=== PATIENT | female | born 1945 | race Caucasian/White ===

== ENCOUNTER 2016-11-26 08:00 | Outpatient (CLI) | payer MEDICARE | END 2016-11-26 23:59 | disposition home or self-care (01) | DX: R73.09 Other abnormal glucose (principal) ==

== ENCOUNTER 2016-11-26 08:35 | Outpatient (CLI) | payer MEDICARE | END 2016-11-26 08:36 | disposition home or self-care (01) | DX: Z00.00 Encounter for general adult medical examination without abnormal findings (principal); R41.81 Age-related cognitive decline; E03.9 Hypothyroidism, unspecified; Z79.899 Other long term (current) drug therapy; M81.0 Age-related osteoporosis without current pathological fracture ==

== ENCOUNTER 2016-12-05 13:44 | Outpatient (CLI) | payer MEDICARE | END 2016-12-05 13:45 | disposition home or self-care (01) | DX: Z12.31 Encounter for screening mammogram for malignant neoplasm of breast (principal) ==

== ENCOUNTER 2017-02-22 07:27 | Outpatient (CLI) | payer MEDICARE | END 2017-02-22 07:28 | disposition home or self-care (01) | DX: E11.65 Type 2 diabetes mellitus with hyperglycemia (principal); Z79.899 Other long term (current) drug therapy ==

== ENCOUNTER 2017-03-25 08:57 | Day surgery (SDC) | payer MEDICARE ==
[2017-03-25] MEDS ORDERED: LACTATED RINGERS 1,000 ML IV ONE (09:47)
[2017-03-25] MEDS ORDERED: fentaNYL 100 MCG/2 ML VIAL IVP ONE (11:09)
[2017-03-25] MEDS ORDERED: MIDAZOLAM 2 MG/2 ML VIAL IVP ONE (11:09)
[2017-03-25 12:14] VITALS: BP 138/82
== END 2017-03-25 08:58 | disposition home or self-care (01) ==
LOC: SDS 08:57
PROVIDERS: ATTEND Surgery
PROC: 0DBH8ZZ Excision of Cecum, Via Natural or Artificial Opening Endoscopic (ICD-10-PCS; principal; 2017-03-25 10:00)
DX: R19.5 Other fecal abnormalities (principal); D12.0 Benign neoplasm of cecum; Z98.0 Intestinal bypass and anastomosis status; K64.8 Other hemorrhoids; K64.4 Residual hemorrhoidal skin tags; Z80.0 Family history of malignant neoplasm of digestive organs; Z95.5 Presence of coronary angioplasty implant and graft; Z87.891 Personal history of nicotine dependence
CPT/HCPCS: 45380; J7120; 88305

== ENCOUNTER 2017-06-20 08:05 | Outpatient (CLI) | payer MEDICARE ==
[2017-06-20 18:20] LABS: HEMOGLOBIN A1C 0.75 g/dL
== END 2017-06-20 08:06 | disposition home or self-care (01) ==
LOC: LAB.R 08:05
PROVIDERS: ATTEND Physician Assistant Medical
DX: E11.9 Type 2 diabetes mellitus without complications (principal); Z79.899 Other long term (current) drug therapy
CPT/HCPCS: 82947; 83036

== ENCOUNTER 2017-07-26 09:05 | Outpatient (CLI) | payer MEDICARE | END 2017-07-26 09:06 | disposition home or self-care (01) | LOC: NS 09:05 | PROVIDERS: ATTEND Physician Assistant Medical | DX: Z71.3 Dietary counseling and surveillance (principal); E11.9 Type 2 diabetes mellitus without complications; Z79.84 Long term (current) use of oral hypoglycemic drugs; Z68.1 Body mass index [BMI] 19.9 or less, adult | CPT/HCPCS: 97803 ==

== ENCOUNTER 2017-08-12 08:56 | Outpatient (CLI) | payer MEDICARE | END 2017-08-12 08:57 | disposition home or self-care (01) | LOC: NS 08:56 | PROVIDERS: ATTEND Physician Assistant Medical | DX: Z71.3 Dietary counseling and surveillance (principal); E11.9 Type 2 diabetes mellitus without complications; Z79.84 Long term (current) use of oral hypoglycemic drugs; Z68.20 Body mass index [BMI] 20.0-20.9, adult | CPT/HCPCS: 97803 ==

== ENCOUNTER 2017-09-23 08:59 | Outpatient (CLI) | payer MEDICARE | END 2017-09-23 09:00 | disposition home or self-care (01) | LOC: NS 08:59 | PROVIDERS: ATTEND Physician Assistant Medical | DX: Z71.3 Dietary counseling and surveillance (principal); E11.9 Type 2 diabetes mellitus without complications; Z68.1 Body mass index [BMI] 19.9 or less, adult | CPT/HCPCS: 97803 ==

== ENCOUNTER 2017-09-27 08:20 | Outpatient (CLI) | payer MEDICARE ==
[2017-09-27 14:10] LABS: HEMOGLOBIN A1C 0.66 g/dL
== END 2017-09-27 08:21 | disposition home or self-care (01) ==
LOC: LAB.R 08:20
PROVIDERS: ATTEND Physician Assistant Medical
DX: E11.9 Type 2 diabetes mellitus without complications (principal); Z79.899 Other long term (current) drug therapy
CPT/HCPCS: 82947; 83036

== ENCOUNTER 2017-12-24 09:48 | Outpatient (CLI) | payer MEDICARE ==
[2017-12-24 10:26] LABS: BASOPHILS # (AUTO) 0.1 10^3/uL (0.0-0.1); BASOPHILS % (AUTO) 1.1 %; EOSINOPHILS # (AUTO) 0.2 10^3/uL (0.0-0.7); EOSINOPHILS % (AUTO) 3.8 %; HGB - HEMOGLOBIN 13.6 g/dL (12.0-16.0); LYMPHOCYTES # (AUTO) 1.3 10^3/uL (1.5-3.5); LYMPHOCYTES % (AUTO) 25.7 %; MEAN CORPUSCULAR HEMOGLOBIN 31.1 pg (27.0-31.0); MEAN CORPUSCULAR HGB CONC 33.9 g/dL (32.0-36.0); MEAN CORPUSCULAR VOLUME 91.6 fL (81.0-99.0); MONOCYTES # (AUTO) 0.4 10^3/uL (0.0-1.0); MONOCYTES % (AUTO) 8.8 %; NEUTROPHILS % (AUTO) 60.6 %; PLT - PLATELET COUNT 239 10^3/uL (130-450); RED BLOOD COUNT 4.38 10^6/uL (4.20-5.40)
[2017-12-24 10:40] LABS: HEMOGLOBIN A1C 0.73 g/dL; HEMOGLOBIN A1C % 6.6 % (4.6-6.2)
[2017-12-24 10:50] LABS: ALBUMIN 4.5 g/dL (3.2-5.5); ALBUMIN/GLOBULIN RATIO 1.4 (1.0-2.2); ALKALINE PHOSPHATASE 62 IU/L (42-121); ALT ALANINE AMINOTRANSFERASE 41 IU/L (10-60); AST ASPARTATE AMINOTRANSFERASE 41 IU/L (10-42); BUN - BLOOD UREA NITROGEN 13 mg/dL (6-20); CALCIUM 9.4 mg/dL (8.5-10.3); CARBON DIOXIDE - CO2 26 mmol/L (21-32); CHLORIDE 93 mmol/L (101-111); CHOLESTEROL 141 mg/dL; CREATININE 0.7 mg/dL (0.4-1.0); GFR - MDRD 82 (>89); GLUCOSE 143 mg/dL (70-100); HDL CHOLESTEROL 69 mg/dL; LDL CHOLESTEROL,CALCULATED 62 mg/dL; LDL/HDL RATIO 0.9 (<4.4); SODIUM 132 mmol/L (135-145); TOTAL PROTEIN 7.7 g/dL (6.7-8.2); VLDL CHOLESTEROL 10 mg/dL
[2017-12-24 11:06] LABS: CRP HIGH SENSITIVITY < 0.2 mg/L
[2017-12-24 11:27] LABS: THYROID STIMULATING HORMONE 0.42 uIU/mL (0.34-5.60)
[2017-12-24 11:28] LABS: FREE T4 (FREE THYROXINE) 1.43 ng/dL (0.58-1.64)
[2017-12-26 11:22] LABS: THYROID PEROXIDASE ANTIBODIES 15 IU/mL (<9)
== END 2017-12-24 09:49 | disposition home or self-care (01) ==
LOC: LAB 09:48
PROVIDERS: ATTEND Physician Assistant Medical
DX: M81.0 Age-related osteoporosis without current pathological fracture (principal); E11.9 Type 2 diabetes mellitus without complications; I25.10 Atherosclerotic heart disease of native coronary artery without angina pectoris; E03.9 Hypothyroidism, unspecified; Z79.899 Other long term (current) drug therapy
CPT/HCPCS: 36415; 80053; 80061; 81599; 82306; 82607; 83036; 83090; 83695; 83721; 84439; 84443; 84481; 85025; 86141; 86376; 86800

== ENCOUNTER 2017-12-31 16:06 | Outpatient (CLI) | payer MEDICARE ==
--- NOTE | 2018-01-01 10:01 | XRAY Report ---
TWO VIEW CHEST: 12/31/2017 CLINICAL INDICATION: Hyponatremia. COMPARISON: 11/02/2006. FINDINGS: Frontal and lateral views of the chest demonstrate a normal cardiac silhouette. The lungs are hyperinflated, compatible with COPD. No suspicious pulmonary nodule or mass lesion is appreciated. No effusion or pneumothorax is present. IMPRESSION: HYPERINFLATION, COMPATIBLE WITH COPD. TD: 01/01/2018 10:00
== END 2017-12-31 16:07 | disposition home or self-care (01) ==
LOC: DI 16:06
PROVIDERS: ATTEND Physician Assistant Medical
DX: E87.1 Hypo-osmolality and hyponatremia (principal)
CPT/HCPCS: 71046

== ENCOUNTER 2018-02-14 18:53 | Emergency (ER) | payer MEDICARE ==
[2018-02-14 19:02] VITALS: BP 145/71
[2018-02-14] MEDS ORDERED: TETANUS/DIPHTHERIA/PERTUSSIS 0.5 ML SYRINGE IM ONE (20:10)
[2018-02-14] MEDS ORDERED: AMOX/CLAV 875 MG/125 MG TABLET PO STA (20:10)
--- NOTE | 2018-02-14 20:12 | ED Physician Documentation ---
PD HPI UPPER EXT INJURY - Stated complaint Stated Complaint: CAT BITE - Chief complaint Chief Complaint: Wound - History obtained from History obtained from: Patient - History of Present Illness Location: Other (She was bitten to the left forearm by her own fully immunized cat his prior to arrival. 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 Cardiovascular: Coronary stent, Angioplasty HEENT: Cataracts - Present Medications Home Medications: Ambulatory Orders Medication Instructions Recorded Confirmed Aspirin [Carmen Chewable] 81 mg PO DAILY 05/02/16 02/14/18 Atorvastatin Calcium 20 mg PO QPM 05/02/16 02/14/18 Levothyroxine [Synthroid] 0.125 mcg PO QDAC 05/02/16 02/14/18 Nitroglycerin [Nitrostat] 0.3 mg SL Q5MIN PRN 05/02/16 02/14/18 Trazodone HCl 100 mg PO DAILY 05/02/16 02/14/18 Calcium Carbonate [Calcium] 600 mg PO DAILY 12/07/16 02/14/18 Cholecalciferol (Vitamin D3) 4,000 unit PO DAILY 12/07/16 02/14/18 [Vitamin D3] Multivitamin [Multiple Vitamins] 1 each PO DAILY 12/07/16 02/14/18 metFORMIN [Glucophage] 500 mg PO BIDWM 03/21/17 02/14/18 Amox/Clav 875/125 [Augmentin] 1 each PO Q12H #14 tablet 02/14/18 - Allergies Allergies/Adverse Reactions: Allergies Allergy/AdvReac Type Severity Reaction Status Date / Time codeine AdvReac Nausea Verified 02/14/18 19:02 Sulfa (Sulfonamide AdvReac Anaphylaxis Verified 02/14/18 19:02 Antibiotics) - Social History Does the pt smoke?: No Smoking Status: Former smoker Does the pt drink ETOH?: No Does the pt have substance abuse?: No - POLST Patient has POLST: No PD ED PE NORMAL - Vitals Vital signs reviewed: Yes - General General: Alert and oriented X 3, No acute distress - Extremities Extremities: Other (She has a small area of tissue loss that is quite shallow over the dorsal mid forearm without evidence of infection.) - Neuro Neuro: Alert and oriented X 3, Normal speech Results - Vitals Vitals: Vital Signs - 24 hr 02/14/18 18:57 Temperature 36.8 C Heart Rate 91 Respiratory 14 Rate Blood Pressure 145/71 H O2 Saturation 99 Oxygen O2 Source Room air PD MEDICAL DECISION MAKING - ED course ED course: Wound was irrigated and closed with Steri-Strips, tetanus was updated and she was started on Augmentin. Departure - Departure Disposition: 01 Home, Self Care Clinical Impression: Animal bite with open wound Condition: Good Record reviewed to determine appropriate education?: Yes Instructions: Bites Scratches Animal Prescriptions: Amox/Clav 875/125 [Augmentin] 1 each PO Q12H #14 tablet Comments: Come back for any signs of infection which would include: Redness, swelling, drainage, increased pain, or fevers. Your blood pressure was elevated today on check into the emergency department. This does not mean that you have hypertension, it is a common phenomenon to come to the emergency department and have elevated blood pressure. I recommend that you see your primary care physician within the week to have it rechecked when you are feeling better.
== END 2018-02-14 20:58 | disposition home or self-care (01) ==
LOC: ED 18:53
DX: S51.852A Open bite of left forearm, initial encounter (principal); W55.01XA Bitten by cat, initial encounter; R03.0 Elevated blood-pressure reading, without diagnosis of hypertension; Z23 Encounter for immunization; E11.9 Type 2 diabetes mellitus without complications; I25.10 Atherosclerotic heart disease of native coronary artery without angina pectoris; E03.9 Hypothyroidism, unspecified; Z79.84 Long term (current) use of oral hypoglycemic drugs; Z79.82 Long term (current) use of aspirin; Z95.5 Presence of coronary angioplasty implant and graft; Z87.891 Personal history of nicotine dependence
CPT/HCPCS: 90471; 90715; 99283; A9270

== ENCOUNTER 2018-02-27 14:23 | Outpatient (CLI) | payer MEDICARE ==
--- NOTE | 2018-02-28 11:01 | DEXA Report ---
DEXA SCAN: 02/27/2018 CLINICAL INDICATION: Postmenopausal. TECHNIQUE: Dual energy x-ray absorptiometry (DXA) was performed on a [employer]unk[employer] Mode system. Regions measured are the AP spine, femoral neck, and, if needed, forearm. COMPARISON: None. In accordance with the International Society for Clinical Densitometry (ISCD) guidelines, data from previous exams may be reanalyzed using current recommendations and techniques. This is done to allow a more accurate basis for comparison with the current study. FINDINGS Data for the lumbar spine is as follows: REGION BMD (g/cm/cm) T-SCORE Z-SCORE L1 0.707 -3.5 -1.3 L2 0.894 -2.5 -0.4 L3 0.893 -2.6 -0.4 L4 1.004 -1.6 0.6 L1-L4 0.883 -2.5 -0.3 NOTE: All evaluable vertebrae are used for classification. Data for the hip is as follows: REGION BMD (g/cm/cm) T-SCORE Z-SCORE Neck 0.781 -1.8 0.3 TOTAL 0.772 -1.9 0.2 NOTE: The femoral neck or total proximal femur, whichever is lowest, is used for classification. IMPRESSION WHO CLASSIFICATION BASED ON THE INTERNATIONAL REFERENCE STANDARD IS OSTEOPOROSIS. FRACTURE RISK IS HIGH. RECOMMENDATION: Patients with diagnosis of osteoporosis or osteopenia should have regular bone mineral density assessment. For those eligible for Medicare, routine testing is allowed once every 2 years. Testing frequency can be increased for patients who have rapidly progressing disease or for those who are receiving medical therapy to restore bone mass. COMMENT World Health Organization (WHO) definitions for osteoporosis and osteopenia: NORMAL BMD: T-score at 1.0 or higher, fracture risk is low. OSTEOPENIA BMD: T-score between 1.0 and -2.5, fracture risk is increased. OSTEOPOROSIS BMD: T-score at 2.5 or lower, fracture risk high. National Osteoporosis Foundation recommends: 1. Obtain adequate dietary calcium (at least 1200 mg per day) and vitamin D (400 -800 international units per day). 2. Participate, as appropriate, in regular weightbearing and muscle- strengthening exercise. 3. Avoid tobacco use and reduce alcohol and caffeine intake. 4. For more detailed information see the website at www.NOF.org. TD: 02/27/2018 16:13 MTDTom
== END 2018-02-27 14:24 | disposition home or self-care (01) ==
LOC: DI 14:23
PROVIDERS: ATTEND Internal Medicine
DX: Z78.0 Asymptomatic menopausal state (principal); M81.0 Age-related osteoporosis without current pathological fracture
CPT/HCPCS: 77080

== ENCOUNTER → 2018-09-10 | Outpatient (CLI) | payer MEDICARE ==
[2018-09-10 15:09] LABS: HEMOGLOBIN A1C 0.68 g/dL; HEMOGLOBIN A1C % 6.6 % (4.6-6.2)
== END ==
LOC: LAB.R 09:02
PROVIDERS: ATTEND Physician Assistant Medical
DX: Z79.899 Other long term (current) drug therapy (principal); E11.9 Type 2 diabetes mellitus without complications
CPT/HCPCS: 82947; 83036

== ENCOUNTER 2019-06-12 06:26 | Emergency (ER) | payer MEDICARE ==
[2019-06-12] MEDS ORDERED: oxyCODONE 5 MG TABLET PO STA ×2 (08:05→12:23)
[2019-06-12] MEDS ORDERED: ACETAMINOPHEN 325 MG TABLET PO STA (08:05)
--- NOTE | 2019-06-12 08:33 | ED Physician Documentation ---
History of Present Illness - Stated complaint Stated Complaint: GLF/BACK PX - Chief complaint Chief Complaint: Trauma Ch/Bk - Additonal information Additional information: This is a 73-year-old female who presents after a ground-level fall on Saturday evening. Patient was trying to get out of her bathtub on Saturday and she states that the tub was slippery and she fell backwards landing on her lower back. She had immediate pain in the area, and she has been treating this with some ibuprofen. However she has had persistent pain which is moderate to severe and worse with standing or with pressure on the area. She denies weakness, n umbness, tingling. No history of previous back injuries or fractures. She denies any urinary or bowel complaints, no incontinence. She denies chest pain, shortness of breath, or confusion. No dysuria. She did not hit her head or neck, denies loss of consciousness. She is not on anticoagulants. Review of Systems Constitutional: denies: Fever Nose: denies: Rhinorrhea / runny nose Cardiac: denies: Chest pain / pressure Respiratory: denies: Dyspnea GI: denies: Abdominal Pain : denies: Dysuria Skin: denies: Rash Musculoskeletal: reports: Back pain. 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 Cardiovascular: Coronary stent, Angioplasty HEENT: Cataracts - Present Medications Home Medications: Ambulatory Orders Medication Instructions Recorded Confirmed Aspirin [Carmen Chewable] 81 mg PO DAILY 05/02/16 06/12/19 Levothyroxine [Synthroid] 0.125 mcg PO QDAC 05/02/16 06/12/19 Nitroglycerin [Nitrostat] 0.3 mg SL Q5MIN PRN 05/02/16 06/12/19 RX: Atorvastatin Calcium 20 mg PO QPM 05/02/16 06/12/19 RX: Trazodone HCl 100 mg PO DAILY 05/02/16 06/12/19 Calcium Carbonate [Calcium] 600 mg PO DAILY 12/07/16 06/12/19 Cholecalciferol (Vitamin D3) 4,000 unit PO DAILY 12/07/16 06/12/19 [Vitamin D3] Multivitamin [Multiple Vitamins] 1 each PO DAILY 12/07/16 06/12/19 metFORMIN [Glucophage] 500 mg PO BIDWM 03/21/17 06/12/19 Oxycodone HCl/Acetaminophen 1 - 2 each PO Q6H PRN #14 tablet 06/12/19 [Percocet 5-325 mg Tablet] Polyethylene Glycol 3350 [Miralax] 17 gm PO DAILY PRN #1 bottle 06/12/19 - Allergies Allergies/Adverse Reactions: Allergies Allergy/AdvReac Type Severity Reaction Status Date / Time codeine AdvReac Nausea Verified 06/12/19 06:48 Sulfa (Sulfonamide AdvReac Anaphylaxis Verified 06/12/19 06:48 Antibiotics) - Social History Does the pt smoke?: No Smoking Status: Never smoker Does the pt drink ETOH?: No Does the pt have substance abuse?: No - Immunizations Immunizations are current?: Yes - POLST Patient has POLST: No PD ED PE NORMAL - Free text exam Free text exam: GENERAL: Awake, alert EYES: Normal sclera HENT/Mouth: Mucus membranes are moist RESP: Lungs sound clear and equal bilaterally CV: Regular rate and rhythm; no lower extremity edema GI: Abdomen is soft, non-distended, No tenderness to palpation of all quadrants Back: Moderate kyphosis. There is tenderness over the upper L-spine in the region of T12-L1 and L2. No open wounds, appears to be some mild ecchymosis in this region. No C-spine tenderness, no upper or mid T-spine tenderness to palpation. : No CVA tenderness NEURO: Awake, alert, oriented to person, place, event. Speech fluent and articulate. Motor: 5/5 strength with hip flexion, ankle dorsiflexion and plantarflexion. Sensation: Intact to light touch over all extremities Gait: Able to stand and ambulate independently. Results - Vitals Vitals: Vital Signs - 24 hr 06/12/19 06/12/19 06/12/19 08:50 08:57 11:19 Heart Rate 70 86 86 Respiratory 16 16 19 Rate Blood Pressure 188/78 H 153/74 H 146/85 H O2 Saturation 97 98 99 06/12/19 12:58 Heart Rate 90 Respiratory 18 Rate Blood Pressure 148/81 H O2 Saturation 96 Oxygen O2 Source Room air - Labs Labs: Laboratory Tests 06/12/19 06/12/19 06:40 08:45 POC Whole Bld Glucose 159 H Urine Color YELLOW Urine Clarity CLEAR Urine pH 6.5 Ur Specific [place] 1.020 Urine Protein TRACE Urine Glucose (UA) NEGATIVE Urine Ketones 40 H Urine Occult Blood NEGATIVE Urine Nitrite NEGATIVE Urine Bilirubin NEGATIVE Urine Urobilinogen 0.2 (NORMAL) Ur Leukocyte Esterase NEGATIVE Ur Microscopic Review NOT INDICATED - Rads (name of study) CT L Spine Radiology: Other (CT scan reviewed now was notified of resolved by the radiologist, patient has a 2 column fracture of the upper T12 vertebral body with 30% vertebral height loss and a mild degree of posterior fracture fragment displacement into the central canal with mild canal stenosis.) PD MEDICAL DECISION MAKING - ED course Complexity details: considered differential (Fracture, dislocation, strain, sprain, contusion, hematoma, UTI) ED course: On initial examination patient is mildly her head and neck are atraumatic, as are her extremities. She has localized tenderness to the lower midline L-spine, given her age And midline tenderness a CT of the L-spine was obtained, this showed the above-mentioned T12 2 column fracture. I called the [facility] spine service and spoke with Dr. Rivera Of neurosurgery, who reviewed her CT scan. He recommended TLSO bracing, and follow-up with their service in 1 to 2 weeks as an outpatient. He does not feel that she is a good surgical candidate due to osteopenia, and the fact that she is ambulatory is also reassuring. She is a normal neurologic exam with no sensory or motor deficits. TLSO brace was applied, And upright x-rays were obtained Which showed no further acute findings other than those detailed in the CT scan. I talked with the [facility] scheduling service and they will call her to set up an appointment in the next 1 to 2 weeks, I also provided the patient with the got information for [facility]. I discussed that she is to wear her TLSO brace anytime she is out of bed, and that she should avoid twisting, flexion, or extension of her back until she is cleared by the neurosurgery service. I discussed return precautions including any neurologic symptoms, or increasing pain. Regarding her fall, this does appear to be mechanical, she had no chest pain, shortness of breath, syncope, or urinary symptoms to suggest a primary medical cause. Her urinalysis is negative for infection. I prescribed her Tylenol as well as some oxycodone for breakthrough pain, And discussed the risks of this medication. I also prescribed a stool softener for use with the oxycodone. Patient's questions were answered, and she was discharged home in the care of her daughter Departure - Departure Disposition: 01 Home, Self Care Clinical Impression: Fracture of thoracic spine Qualifiers: Encounter type: initial encounter Thoracic vertebra fracture level: T12 Fracture type: closed Fracture morphology: unspecified fracture morphology Qualified Code(s): S22.089A - Unspecified fracture of T11-T12 vertebra, initial encounter for closed fracture Condition: Stable Instructions: ED Fx Comp Vertebral Follow-Up: [facility],Spine Service [Other] ([facility]'s office will call you to schedule an appt in 1-2 business days) Prescriptions: Oxycodone HCl/Acetaminophen [Percocet 5-325 mg Tablet] 1 - 2 each PO Q6H PRN #14 tablet PRN Reason: pain Polyethylene Glycol 3350 [Miralax] 17 gm PO DAILY PRN #1 bottle PRN Reason: Constipation Comments: You have a fracture of your T12 vertebra, Wear your brace anytime you are out of bed. Please follow-up with the [facility] orthospine service as directed in 1-2 weeks. Return to emergency department if you have any increasing pain, numbness, weakness, or any other concerning symptoms. Discharge Date/Time: 06/12/19 17:12
[2019-06-12 08:55] LABS: BILIRUBIN,URINE NEGATIVE (NEGATIVE); GLUCOSE, URINE (UA) NEGATIVE (NEGATIVE); KETONES,URINE (UA) 40 mg/dL (NEGATIVE); LEUKOCYTE ESTERASE, URINE NEGATIVE (NEGATIVE); NITRITE,URINE NEGATIVE (NEGATIVE); OCCULT BLOOD,URINE NEGATIVE (NEGATIVE); PH,URINE 6.5 PH (5.0-7.5); PROTEIN,URINE TRACE mg/dL (NEGATIVE); UROBILINOGEN,URINE 0.2 (NORMAL) E.U./dL (NORMAL)
[2019-06-12 09:01] LABS: CLARITY,URINE CLEAR (CLEAR)
--- NOTE | 2019-06-12 09:19 | CT Report ---
Reason: Fall, midline lumbar back pain Procedure Date: 06/12/2019 Accession Number: [id number] / [id number] Procedure: CT - LUMBAR SPINE WO CPT Code: FULL RESULT: EXAM: CT LUMBAR SPINE WITHOUT CONTRAST EXAM DATE: 06/12/2019 08:39 AM. CLINICAL HISTORY: Midline lumbar spine pain post injury after a fall. COMPARISONS: XR LUMBOSACRAL SPINE 4 VIEWS 08/05/2012 1:10 PM. TECHNIQUE: Thin-section axial images were acquired of the lumbar spine from T12 to S1 without contrast. Post-processing: Coronal and sagittal reformats. Other: None. In accordance with CT protocol optimization, one or more of the following dose reduction techniques were utilized for this exam: automated exposure control, adjustment of mA and/or KV based on patient size, or use of iterative reconstructive technique. FINDINGS: Alignment: Abnormal alignment. 25 degrees of upper lumbar levoscoliosis. Bones: Five [id number] lumbar vertebral bodies are present. Comminuted mildly displaced acute-appearing fractures of the superior T12 vertebral body including involvement of the superior endplate and the anterior and posterior rivas. This has the appearance of an acute 2 column upper T12 vertebral body fracture with at least 3 mm of fracture fragment displacement posteriorly into the central canal contributing to a mild degree of canal stenosis. The overall degree of the T12 vertebral body height loss is approximately 30%. No evidence for displaced fracture of the T12 posterior elements. This fracture deformity was not present on previous conventional radiographs. Reparative changes associated with the fractures are not identified, the appearance is consistent with an acute injury. Chronic L1 vertebral body healed anterior wedge compression fracture deformity with secondary degenerative changes. Chronic-appearing minimally displaced ununited fracture of the left L2 transverse process. Probable diffuse skeletal demineralization. Streak artifact from horizontally-oriented orthopedic fusion screw through the right SI joint. This screw was not present on the previous conventional radiographs. Disk Levels/Facets: T12-L1: Mild to moderate chronic degenerative changes. Mild central stenosis. Mild right and moderate left foraminal stenosis from chronic-appearing marginal spurring. L1-L2: Moderate disk degeneration. Mild facet arthropathy. Prominent asymmetric far right lateral degenerative chronic disk osteophyte complex. Patient central canal and left foramen. Mild right foraminal stenosis. L2-L3: Moderate to marked disk degeneration. Mild to moderate facet arthropathy. Patent central canal and left foramen. Mild foraminal stenosis on the right. Asymmetric far right lateral disk osteophyte complex. L3-L4: Moderate to marked disk degeneration. Mild to moderate facet arthropathy with mild ligamentum flavum thickening. Circumferential disk bulge. Additional bilateral intraforaminal and far lateral disk protrusions with osteophytes right greater than left. Mild to moderate central stenosis. Moderate bilateral lateral recess stenosis. Foraminal stenosis is mild to moderate on the left and moderate to severe on the right. L4-L5: Moderate to marked disk degeneration and facet arthropathy with a mild ligament flavum thickening. Mild central stenosis. Minimal right and mild to moderate left lateral recess stenosis. Circumferential bulge, marginal spurring and additional asymmetric left intraforaminal and far left lateral disk protrusion with asymmetric osteophyte. Foraminal stenosis is moderate to severe on the left and minimal on the right. L5-S1: Moderate disk degeneration and facet arthropathy. Circumferential bulge. Patent central canal and lateral recesses. Foraminal stenosis is mild on the right and moderate on the left. Musculature: Mild fatty artery. Other: Innumerable chronic-appearing punctate splenic calcifications. IMPRESSION: 1. Acute-appearing 2 column fracture (2 column fractures of the lumbar spine can be unstable) of the upper T12 vertebral body with approximately 30% vertebral body height loss, fracture involvement of the anterior and posterior body rivas and a mild degree of posterior fracture fragment displacement into the central canal creating mild canal stenosis. 2. Chronic healed L1 vertebral body anterior wedge compression fracture. 3. Prominent multilevel multizone lumbar spinal stenosis from moderate to marked multilevel hypertrophic degenerative spondylosis with spurring and disk protrusions as detailed level by level above. RADIA The call report notification system was initiated by Dr. Axel Booker at 08:57 AM on 06/12/2019. The above call report findings were discussed with Thuan Segovia by Dr. Axel Booker at 09:16 AM on 06/12/2019.
[2019-06-12] MEDS ORDERED: ONDANSETRON ODT 4 MG TABLET TL STA (09:23)
[2019-06-12 12:59] VITALS: BP 148/81
--- NOTE | 2019-06-12 15:12 | XRAY Report ---
Reason: Post-TLSO brace film Procedure Date: 06/12/2019 Accession Number: [id number] / [id number] Procedure: XR - Lumbar Spine 2 View CPT Code: FULL RESULT: EXAM: LUMBOSACRAL SPINE RADIOGRAPHY EXAM DATE: 06/12/2019 02:58 PM. CLINICAL HISTORY: Post-TLSO brace film. Known fracture. COMPARISONS: XR LUMBOSACRAL SPINE 4 VIEWS 08/05/2012 1:10 PM LUMBAR SPINE W/O 06/12/2019 8:31 AM. TECHNIQUE: 2 views. FINDINGS: Alignment: There is grade 1 spondylolisthesis at L5-S1. Alignment at other levels appears satisfactory. There is apex left curvature of the lumbar spine with 26 degrees of apex left curvature between T12 and L4. Bones: There is a compression fracture of the T12 vertebral body. There is anterior wedging of L1. These findings appear unchanged. There are 5 lumbar vertebral bodies. Disks: There is disk height loss greatest at L2-L3 and L4-L5. Facets: Not well seen. Sacroiliac Joints: Satisfactory alignment on frontal image. Soft Tissues: There is a surgical screw traversing across the right sacroiliac joint. IMPRESSION: 1. 26 degrees of apex left scoliotic curvature between T12 and L4. 2. Grade 1 spondylolisthesis at L5-S1. RADIA
--- NOTE | 2019-06-12 15:22 | XRAY Report ---
Reason: Post- TLSO brace Procedure Date: 06/12/2019 Accession Number: [id number] / [id number] Procedure: XR - Thoracic Spine 2 View CPT Code: FULL RESULT: EXAM: THORACIC SPINE RADIOGRAPHY EXAM DATE: 06/12/2019 02:58 PM. CLINICAL HISTORY: Post- TLSO brace. Slipped and fell 3 days ago. Mid back pain. In a brace. COMPARISON: XR LUMBOSACRAL SPINE 4 VIEWS 08/05/2012 1:10 PM LUMBAR SPINE W/O 06/12/2019 8:31 AM. TECHNIQUE: 2 views. FINDINGS: Alignment: There is mild S-shaped scoliotic curvature of the thoracic spine. There is no subluxation. Bones: There is a compression fracture of the T12 vertebral body with approximately 20-30% loss of vertebral body height. Disks: Normal. Disk heights are maintained. Soft Tissues: Negative for pleural effusion and pneumothorax. IMPRESSION: 1. T12 vertebral body compression fracture with approximately 20-30% vertebral body height loss. RADIA
== END 2019-06-12 17:12 | disposition home or self-care (01) ==
LOC: ED 06:26
DX: S22.088A Other fracture of T11-T12 vertebra, initial encounter for closed fracture (principal); W18.2XXA Fall in (into) shower or empty bathtub, initial encounter; Y93.E1 Activity, personal bathing and showering; M51.36 Other intervertebral disc degeneration, lumbar region; M48.061 Spinal stenosis, lumbar region without neurogenic claudication; M43.17 Spondylolisthesis, lumbosacral region; M47.896 Other spondylosis, lumbar region; M41.84 Other forms of scoliosis, thoracic region; M85.80 Other specified disorders of bone density and structure, unspecified site; E11.9 Type 2 diabetes mellitus without complications; Z79.84 Long term (current) use of oral hypoglycemic drugs; Z79.82 Long term (current) use of aspirin
CPT/HCPCS: 72070; 72100; 72131; 81003; 99284; A9270; Q0162; 81001

== ENCOUNTER 2019-06-14 04:11 | Outpatient (CLI) | payer MEDICARE | END 2019-06-14 04:12 | disposition critical access hospital (66) | LOC: EMS 04:11 | PROVIDERS: ATTEND Surgery | DX: R19.8 Other specified symptoms and signs involving the digestive system and abdomen (principal); R39.9 Unspecified symptoms and signs involving the genitourinary system; M54.9 Dorsalgia, unspecified | CPT/HCPCS: A0425; A0429 ==

== ENCOUNTER 2019-06-14 04:43 | Emergency (ER) | payer MEDICARE ==
--- NOTE | 2019-06-14 04:59 | ED Physician Documentation ---
History of Present Illness - Stated complaint Stated Complaint: BACK PAIN - Chief complaint Chief Complaint: Abd Pain - History obtained from History obtained from: Patient - History of Present Illness Timing: How many days ago (4) Pain level now: 5 Improved by: rest, prescription medication (oxycodone) Worsened by: movement Associated symptoms: back pain, no BM and minimal UO x 3 days - Additonal information Additional information: BIBA c/o poor PO intake with minimal UO and no BM x 3 days. She does not feel urge to urinate or have BM and says pain has been adequately controlled with the prescribed pain medication from visit 2 days ago. Patient fell 4 days ago in bathtub and presented to this ED 2 days ago for back pain that started when she had fallen. ED testing at that time was significant for new T12 fracture on CT. She was placed in TLSO brace and discharged. She had been living alone but subsequent to d/c from ED, she has a friend staying with her. Review of Systems Constitutional: denies: Fever, Chills, Sweats Cardiac: reports: Reviewed and negative Respiratory: reports: Reviewed and negative GI: reports: Reviewed and negative : denies: Dysuria, Frequency, Unable to Void, Incontinent Skin: reports: Reviewed and negative Musculoskeletal: reports: Back pain. denies: Neck pain, Extremity pain Neurologic: reports: Generalized weakness. 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 Cardiovascular: Coronary stent, Angioplasty HEENT: Cataracts - Present Medications Home Medications: Ambulatory Orders Medication Instructions Recorded Confirmed Aspirin [Carmen Chewable] 81 mg PO DAILY 05/02/16 06/12/19 Atorvastatin Calcium 20 mg PO QPM 05/02/16 06/12/19 Levothyroxine [Synthroid] 0.125 mcg PO QDAC 05/02/16 06/12/19 Nitroglycerin [Nitrostat] 0.3 mg SL Q5MIN PRN 05/02/16 06/12/19 Trazodone HCl 100 mg PO DAILY 05/02/16 06/12/19 Calcium Carbonate [Calcium] 600 mg PO DAILY 12/07/16 06/12/19 Cholecalciferol (Vitamin D3) 4,000 unit PO DAILY 12/07/16 06/12/19 [Vitamin D3] Multivitamin [Multiple Vitamins] 1 each PO DAILY 12/07/16 06/12/19 metFORMIN [Glucophage] 500 mg PO BIDWM 03/21/17 06/12/19 Oxycodone HCl/Acetaminophen 1 - 2 each PO Q6H PRN #14 tablet 06/12/19 [Percocet 5-325 mg Tablet] Polyethylene Glycol 3350 [Miralax] 17 gm PO DAILY PRN #1 bottle 06/12/19 - Allergies Allergies/Adverse Reactions: Allergies Allergy/AdvReac Type Severity Reaction Status Date / Time codeine AdvReac Nausea Verified 06/14/19 04:52 Sulfa (Sulfonamide AdvReac Anaphylaxis Verified 06/14/19 04:52 Antibiotics) - Social History Does the pt smoke?: No Smoking Status: Never smoker Does the pt drink ETOH?: No Does the pt have substance abuse?: No - Immunizations Immunizations are current?: Yes - POLST Patient has POLST: No PD ED PE NORMAL - Vitals Vital signs reviewed: Yes - General General: Alert and oriented X 3, No acute distress (NAD at rest; patient appears to be in pain when the head of the bed was raised from flat to 10-15 degrees), Well developed/nourished, Other (TLSO brace in place) - HEENT HEENT: Atraumatic, PERRL, EOMI, Other (dry mucous membranes) - Neck Neck: No bony TTP - Cardiac Cardiac: RRR, No murmur - Respiratory Respiratory: No respiratory distress, Clear bilaterally - Abdomen Abdomen: Soft, Non tender, Non distended - Derm Derm: Normal color, Warm and dry - Extremities Extremities: No edema - Neuro Neuro: Alert and oriented X 3, certified 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 assistant 2-12 intact, No motor deficit (5/5 bilateral dorsi/plantarflexion), No sensory deficit (LTS intact BLE), Normal speech Eye Opening: Spontaneous Motor: Obeys Commands Verbal: Oriented GCS Score: 15 Results - Vitals Vitals: Vital Signs - 24 hr 06/14/19 06/14/19 06/14/19 04:47 06:41 08:00 Temperature 36.5 C Heart Rate 85 79 96 Respiratory 16 16 13 Rate Blood Pressure 169/80 H 146/78 H 140/73 H O2 Saturation 96 97 78 L Oxygen O2 Source Room air - Labs Labs: Laboratory Tests 06/14/19 06/14/19 06/14/19 05:20 05:20 05:43 WBC 7.7 RBC 4.06 L Hgb 12.7 Hct 38.6 MCV 95.1 MCH 31.3 H MCHC 32.9 RDW 12.8 Plt Count 203 MPV 9.5 Neut # (Auto) 5.6 Lymph # (Auto) 1.1 L Early # (Auto) 0.8 Eos # (Auto) 0.1 Baso # (Auto) 0.0 Absolute Nucleated RBC 0.00 Nucleated RBC % 0.0 Sodium 135 Potassium 3.5 Chloride 96 L Carbon Dioxide 25 Anion Gap 14.0 H BUN 11 Creatinine 0.6 Estimated GFR (MDRD) 97 Glucose 115 H Calcium 8.2 L Total Bilirubin 1.1 H AST 27 ALT 22 Alkaline Phosphatase 51 Total Protein 6.3 L Albumin 3.6 Globulin 2.7 Albumin/Globulin Ratio 1.3 Lipase 19 L Urine Color YELLOW Urine Clarity CLEAR Urine pH 6.5 Ur Specific [place] 1.010 Urine Protein NEGATIVE Urine Glucose (UA) NEGATIVE Urine Ketones 40 H Urine Occult Blood NEGATIVE Urine Nitrite NEGATIVE Urine Bilirubin NEGATIVE Urine Urobilinogen 0.2 (NORMAL) Ur Leukocyte Esterase NEGATIVE Ur Microscopic Review NOT INDICATED Urine Culture Comments NOT INDICATED PD MEDICAL DECISION MAKING - ED course Complexity details: reviewed old records, reviewed results, re-evaluated patient, considered differential, d/w patient ED course: Initial impression is dehydration due to inadequate PO intake (consequence of recent injury). However, she had over 400 cc on I+O catheterization and blood work and UA are not c/w significant dehydration. She endorses adequate pain control with the prescribed medications but appears to be in obvious and significant painful discomfort with elevation of HOB to 10-15 degrees. Care of patient turned over to Dr. Segovia at end of my shift pending further testing and disposition.
[2019-06-14] MEDS ORDERED: SODIUM CHLORIDE 0.9% 1,000 ML IV ONE (05:10)
[2019-06-14 05:37] LABS: BASOPHILS % (AUTO) 0.5 %; EOSINOPHILS # (AUTO) 0.1 10^3/uL (0.0-0.7); HGB - HEMOGLOBIN 12.7 g/dL (12.0-16.0); LYMPHOCYTES # (AUTO) 1.1 10^3/uL (1.5-3.5); LYMPHOCYTES % (AUTO) 14.4 %; MEAN CORPUSCULAR HEMOGLOBIN 31.3 pg (27.0-31.0); MEAN CORPUSCULAR HGB CONC 32.9 g/dL (32.0-36.0); MEAN CORPUSCULAR VOLUME 95.1 fL (81.0-99.0); MEAN PLATELET VOLUME 9.5 fL (7.9-10.8); MONOCYTES # (AUTO) 0.8 10^3/uL (0.0-1.0); MONOCYTES % (AUTO) 10.3 %; NEUTROPHILS # (AUTO) 5.6 10^3/uL (1.5-6.6); NEUTROPHILS % (AUTO) 73.1 %; PLT - PLATELET COUNT 203 10^3/uL (130-450); RED BLOOD COUNT 4.06 10^6/uL (4.20-5.40); RED CELL DISTRIBUTION WIDTH 12.8 % (12.0-15.0); WHITE BLOOD COUNT 7.7 x10^3/uL (4.8-10.8)
[2019-06-14 05:50] LABS: ALBUMIN 3.6 g/dL (3.2-5.5); ALBUMIN/GLOBULIN RATIO 1.3 (1.0-2.2); BILIRUBIN,TOTAL 1.1 mg/dL (0.2-1.0); CALCIUM 8.2 mg/dL (8.5-10.3); CREATININE 0.6 mg/dL (0.4-1.0); TOTAL PROTEIN 6.3 g/dL (6.7-8.2)
[2019-06-14 05:50] LABS: BILIRUBIN,URINE NEGATIVE (NEGATIVE); GLUCOSE, URINE (UA) NEGATIVE (NEGATIVE); KETONES,URINE (UA) 40 mg/dL (NEGATIVE); LEUKOCYTE ESTERASE, URINE NEGATIVE (NEGATIVE); NITRITE,URINE NEGATIVE (NEGATIVE); OCCULT BLOOD,URINE NEGATIVE (NEGATIVE); PH,URINE 6.5 PH (5.0-7.5); PROTEIN,URINE NEGATIVE (NEGATIVE); UROBILINOGEN,URINE 0.2 (NORMAL) E.U./dL (NORMAL)
[2019-06-14 05:52] LABS: CLARITY,URINE CLEAR (CLEAR)
[2019-06-14] MEDS ORDERED: MORPHINE 2 MG/ML CARPUJECT IVP STA ×3 (06:46→12:32)
[2019-06-14] MEDS ORDERED: MAGNESIUM CITRATE 296 ML BOTTLE PO STA (08:05)
--- NOTE | 2019-06-14 08:09 | ED Physician Documentation ---
ED Addendum - Addendum Addendum: Patient signed out from Dr. Dougherty. This is a 73-year-old female who is known to me, I saw her 2 days ago when she came in and had a new T12 vertebral fracture. She was put into a TLSO brace, and she is to follow-up with neurosurgery at [facility]. Since her discharge she has had waxing and waning pain, but she has had continued constipation. Starting in the last 24 hours she has had some difficulty urinating, and has had to be catheterized twice. She denies any weakness, numbness, or tingling. She denies any urinary incontinence. She feels that she is constipated, and she suffers from chronic constipation. She tried an enema at home without results. She also has not had much appetite at home, has not been eating well, does require some assistance getting out of bed and applying her TLSO brace. I examined patient at 8 AM, she has 5 out of 5 strength with hand squeeze, elbow flexion and extension, ankle dorsiflexion and plantarflexion, hip flexion and extension bilaterally. Sensation to light touch is intact over her entire entire lower extremities. She has good rectal tone, no stool impaction in the rectal vault (exam performed with RN home care rn), she has normal sensation in the perineal area. Patient was subsequently able to urinate, but on a post void residual bladder scan was [address] she has some areas of mild spinal canal stenosis and given that she had a recent T12 fracture I am concerned that she m ay have some degree of spinal cord compression or inflammation that would require an MRI for further evaluation. Also sounds like she is not thriving at home with difficulty getting out of bed, putting on her brace, and poor appetite. I feel that she will likely need to be placed into a fpc facility if her MRI does not show signs of acute spinal cord compression. I spoke to the doctor on-call for Edgardo, who arranged for transfer to [facility] where they have the ability to do an MRI and further work-up on the patient. Patient and her daughter Geovanna agree with this plan, and patient was subsequently transferred to [facility] for further evaluation and work- up. 06/14/19 08:06 06/14/19 19:39
--- NOTE | 2019-06-14 08:54 | XRAY Report ---
Reason: Assess stool burden. Leave patient supine please Procedure Date: 06/14/2019 Accession Number: [id number] / [id number] Procedure: XR - Abdomen 1 View X-Ray CPT Code: 60733 FULL RESULT: EXAM: ABDOMEN RADIOGRAPHY EXAM DATE: 06/14/2019 08:26 AM. CLINICAL HISTORY: Chronic constipation. Assess stool burden. Leave patient supine please. COMPARISON: LUMBAR SPINE 2 VIEW 06/12/2019 2:[address] ABD/PEL 03/08/2009 8:38 AM LUMBAR SPINE W/O 06/12/2019 8:31 AM. TECHNIQUE: 1 view. FINDINGS: Bowel Gas Pattern: Within normal limits. No dilated gas-filled loops of bowel or abnormal colonic stool burden. There is a small amount of formed stool in the ascending colon. Other: There is a surgical staple line in the right mid abdomen. There are degenerative changes of the lumbar spine with left convex curvature, similar to recent prior lumbar spine radiographs. There is chronic appearing posttraumatic deformity of the right superior and inferior pubic rami. There is a transverse screw through the right sacroiliac joint. No acute displaced fracture visualized. IMPRESSION: Nonobstructive bowel gas pattern. No abnormal colonic stool burden. RADIA
[2019-06-14 12:28] VITALS: BP 151/79
== END 2019-06-14 12:47 | disposition short-term general hospital (02) ==
LOC: EDUNIT# → ED 04:43
DX: S22.089A Unspecified fracture of T11-T12 vertebra, initial encounter for closed fracture (principal); W18.2XXA Fall in (into) shower or empty bathtub, initial encounter; R33.9 Retention of urine, unspecified; R63.0 Anorexia; E11.9 Type 2 diabetes mellitus without complications; Z79.84 Long term (current) use of oral hypoglycemic drugs; Z79.82 Long term (current) use of aspirin
CPT/HCPCS: 36415; 74018; 80053; 81003; 83690; 85025; 96361; 96374; 96376; 99284; 99285; A9270; 81001; 87086

== ENCOUNTER 2019-06-20 12:00 | Emergency (ER) | payer MEDICARE ==
--- NOTE | 2019-06-20 12:31 | ED Physician Documentation ---
History of Present Illness - Stated complaint Stated Complaint: AMS/POST GLF - Chief complaint Chief Complaint: Neuro - History obtained from History obtained from: Patient, Family - Additonal information Additional information: Patient is a 73-year-old female who was seen in this ED on 06/12/2019 after a fall and determined to have a T12 fracture and placed in a TLSO brace. Patient was then seen several times in this ED shortly thereafter with urinary or bowel issues and transferred to [place] for further work-up and MRI imaging. Per her family, it was determined that patient did not have spinal cord involvement or other complication. Patient and family deny any sensation or strength changes to the groin, buttock, and lower extremity areas. However, patient continues to have urinary and stool incontinence issues. Patient's only pain complaint is to the thoracic spine. No additional falls since previous evaluations. Patient family also deny other symptoms such as abdominal pain, chest pain, difficulty breathing, fever, vomiting. However, patient's daughter is concerned for possible confusion, particularly over the past several days. Patient had been on significant amount of narcotics and was recently transitioned to ibuprofen and Tylenol only. No other improving or worsening factors noted. Review of Systems Constitutional: denies: Fever Cardiac: denies: Chest pain / pressure Respiratory: denies: Dyspnea GI: reports: Diarrhea. denies: Abdominal Pain, Nausea, Vomiting : reports: Incontinent Musculoskeletal: reports: Back pain Neurologic: reports: Confused. denies: Focal weakness, Numbness PD PAST MEDICAL HISTORY - Past Medical History Past Medical History: Yes Cardiovascular: Coronary artery disease, Other Respiratory: None Endocrine/Autoimmune: Type 2 diabetes, HyPOthyroidism GI: Hemorrhoids : None HEENT: None Psych: Depression, Anxiety Musculoskeletal: Other Derm: None - Past Surgical History Past Surgical History: Yes General: Bowel surgery, Other Ortho: Other /APPLICATIONS ARCHITECT: Hysterectomy Cardiovascular: Coronary stent, Angioplasty HEENT: Cataracts - Present Medications Home Medications: Ambulatory Orders Medication Instructions Recorded Confirmed Aspirin [Carmen Chewable] 81 mg PO DAILY 05/02/16 06/12/19 Atorvastatin Calcium 20 mg PO QPM 05/02/16 06/12/19 Levothyroxine [Synthroid] 0.125 mcg PO QDAC 05/02/16 06/12/19 Nitroglycerin [Nitrostat] 0.3 mg SL Q5MIN PRN 05/02/16 06/12/19 Trazodone HCl 100 mg PO DAILY 05/02/16 06/12/19 Calcium Carbonate [Calcium] 600 mg PO DAILY 12/07/16 06/12/19 Cholecalciferol (Vitamin D3) 4,000 unit PO DAILY 12/07/16 06/12/19 [Vitamin D3] Multivitamin [Multiple Vitamins] 1 each PO DAILY 12/07/16 06/12/19 metFORMIN [Glucophage] 500 mg PO BIDWM 03/21/17 06/12/19 Oxycodone HCl/Acetaminophen 1 - 2 each PO Q6H PRN #14 tablet 06/12/19 [Percocet 5-325 mg Tablet] Polyethylene Glycol 3350 [Miralax] 17 gm PO DAILY PRN #1 bottle 06/12/19 Cbd Oil 06/20/19 Nitrofurantoin Monohyd/M-Cryst 100 mg PO BID 7 Days capsule 06/20/19 [Macrobid 100 mg Capsule] - Allergies Allergies/Adverse Reactions: Allergies Allergy/AdvReac Type Severity Reaction Status Date / Time codeine AdvReac Nausea Verified 06/20/19 12:09 Sulfa (Sulfonamide AdvReac Anaphylaxis Verified 06/20/19 12:09 Antibiotics) - Social History Does the pt smoke?: No Smoking Status: Never smoker Does the pt drink ETOH?: No Does the pt have substance abuse?: No - Immunizations Immunizations are current?: Yes - POLST Patient has POLST: No PD ED PE NORMAL - Vitals Vital signs reviewed: Yes - General General: Alert and oriented X 3, No acute distress, Well developed/nourished - HEENT HEENT: Atraumatic, PERRL, EOMI, Pharynx benign. No: Moist mucous membranes (Slightly dry) - Neck Neck: Supple, no meningeal sign - Cardiac Cardiac: RRR, No murmur - Respiratory Respiratory: No respiratory distress, Clear bilaterally - Abdomen Abdomen: Soft, Non tender, Non distended - Derm Derm: Normal color, Warm and dry, No rash - Extremities Extremities: No deformity, No tenderness to palpate, No edema - Neuro Neuro: Alert and oriented X 3, No motor deficit, No sensory deficit - Psych Psych: Normal mood, Normal affect Results - Vitals Vitals: Vital Signs - 24 hr 06/20/19 06/20/19 12:04 14:02 Temperature 36 C L Heart Rate 91 78 Respiratory 18 14 Rate Blood Pressure 145/75 H 147/83 H O2 Saturation 97 96 Oxygen O2 Source Room air - EKG (time done) 1312 Rate: Rate (enter#) (80) Rhythm: NSR Ischemia: Non specific changes Compare to prior EKG: Old EKG unavailable - Labs Labs: Laboratory Tests 06/20/19 06/20/19 06/20/19 12:25 12:25 13:10 WBC 7.8 RBC 4.53 Hgb 13.9 Hct 42.9 MCV 94.7 MCH 30.7 MCHC 32.4 RDW 13.2 Plt Count 363 MPV 9.5 Neut # (Auto) 5.6 Lymph # (Auto) 1.4 L [place] # (Auto) 0.6 Eos # (Auto) 0.0 Baso # (Auto) 0.0 Absolute Nucleated RBC 0.00 Nucleated RBC % 0.0 PT INR APTT Sodium 141 Potassium 3.7 Chloride 95 L Carbon Dioxide 31 Anion Gap 15.0 H BUN 23 H Creatinine 0.9 Estimated GFR (MDRD) 61 L Glucose 98 Lactic Acid Calcium 9.2 Total Bilirubin 0.8 AST 26 ALT 20 Alkaline Phosphatase 69 Troponin I High Sens Total Protein 7.0 Albumin 4.1 Globulin 2.9 Albumin/Globulin Ratio 1.4 Lipase 22 TSH Urine Color YELLOW Urine Clarity HAZY Urine pH 6.0 Ur Specific [place] 1.020 Urine Protein NEGATIVE Urine Glucose (UA) NEGATIVE Urine Ketones 40 H Urine Occult Blood NEGATIVE Urine Nitrite POSITIVE H Urine Bilirubin NEGATIVE Urine Urobilinogen 0.2 (NORMAL) Ur Leukocyte Esterase NEGATIVE Urine RBC 0-5 Urine WBC 0-3 Ur Squamous Epith Cells NONE SEEN Urine Bacteria Moderate H Ur Microscopic Review INDICATED Urine Culture Comments INDICATED 06/20/19 06/20/19 06/20/19 13:15 13:15 13:18 WBC RBC Hgb Hct MCV MCH MCHC RDW Plt Count MPV Neut # (Auto) Lymph # (Auto) [place] # (Auto) Eos # (Auto) Baso # (Auto) Absolute Nucleated RBC Nucleated RBC % PT 11.3 INR 1.0 APTT 25.5 Sodium Potassium Chloride Carbon Dioxide Anion Gap BUN Creatinine Estimated GFR (MDRD) Glucose Lactic Acid Calcium Total Bilirubin AST ALT Alkaline Phosphatase Troponin I High Sens 9.5 Total Protein Albumin Globulin Albumin/Globulin Ratio Lipase TSH 6.13 H Urine Color Urine Clarity Urine pH Ur Specific [place] Urine Protein Urine Glucose (UA) Urine Ketones Urine Occult Blood Urine Nitrite Urine Bilirubin Urine Urobilinogen Ur Leukocyte Esterase Urine RBC Urine WBC Ur Squamous Epith Cells Urine Bacteria Ur Microscopic Review Urine Culture Comments 06/20/19 13:25 WBC RBC Hgb Hct MCV MCH MCHC RDW Plt Count MPV Neut # (Auto) Lymph # (Auto) [place] # (Auto) Eos # (Auto) Baso # (Auto) Absolute Nucleated RBC Nucleated RBC % PT INR APTT Sodium Potassium Chloride Carbon Dioxide Anion Gap BUN Creatinine Estimated GFR (MDRD) Glucose Lactic Acid 1.2 Calcium Total Bilirubin AST ALT Alkaline Phosphatase Troponin I High Sens Total Protein Albumin Globulin Albumin/Globulin Ratio Lipase TSH Urine Color Urine Clarity Urine pH Ur Specific [place] Urine Protein Urine Glucose (UA) Urine Ketones Urine Occult Blood Urine Nitrite Urine Bilirubin Urine Urobilinogen Ur Leukocyte Esterase Urine RBC Urine WBC Ur Squamous Epith Cells Urine Bacteria Ur Microscopic Review Urine Culture Comments PD MEDICAL DECISION MAKING - ED course Complexity details: reviewed old records, reviewed results, re-evaluated patient, considered differential, d/w patient, d/w family ED course: Patient presenting with her family with concern for new onset confusion in the last several days. Patient has had a complicated past several weeks following mechanical fall and known T12 fracture for which she was placed in a TLSO brace. Patient was seen back to the ED several times with urinary and stool incontinence issues and sent to [place] for further evaluation including MRI. Patient's daughter reports that at that time it was not felt that patient was suffering from a cauda equina, but possibly more mild spinal cord injury that can be treated as an outpatient and at that time also offered SNF placement, but patient declined. Patient has been weaned off of her narcotics at this time. No new falls or other specific complaints except for persistent urinary and stool incontinence. Patient herself is oriented and without obvious neurological deficit. CT head obtained to further evaluate for possible intracranial injury including thrombus, aneurysm, bleed, stroke, but only age- related changes found. Do not feel patient warrants MRI or CTAs at this time given exam and other findings. Patient started on IV fluids for hydration but did not require other medications. Screening lab work returned without evidence of leukocytosis, acute kidney injury, electrolyte abnormality, or other specific findings. Urinalysis, however, concerning for infection. Discussed results and recommendations with patient and family. Did attempt to contact certified social workers in health care to help provide resources to patient and family, however, none available at this time. Family is willing to take patient home and is aware of need for further assistance such as home health or long-term placement. Plan is to contact primary care physician on Saturday. Also discussed other supportive cares and return precautions. Patient and family voiced understanding and are comfortable with discharge plan.. Departure - Departure Disposition: Home, Self Care Clinical Impression: Urinary tract infection Qualifiers: Urinary tract infection type: site unspecified Hematuria presence: without hematuria Qualified Code(s): N39.0 - Urinary tract infection, site not specified Condition: Good Instructions: ED UTI Cystitis Female Follow-Up: Chelsi Waterman ARNP [Primary Care Provider] - Within 3 Days Prescriptions: Nitrofurantoin Monohyd/M-Cryst [Macrobid 100 mg Capsule] 100 mg PO BID 7 Days capsule Comments: Please continue home medications as previously instructed. Please wear brace as instructed. Please take antibiotics as instructed to treat bladder infection. Recommend taking with a small amount of food to avoid upset stomach. Recommend contacting primary care physician immediately on Saturday to discuss ER visit, home health options and other resources, as well as long-term placement. Return to the ED sooner if experience worsening symptoms or have other concerns.
[2019-06-20] MEDS ORDERED: SODIUM CHLORIDE 0.9% 1,000 ML IV ONE (12:46)
[2019-06-20 12:54] LABS: BASOPHILS % (AUTO) 0.5 %; EOSINOPHILS % (AUTO) 0.5 %; HGB - HEMOGLOBIN 13.9 g/dL (12.0-16.0); LYMPHOCYTES # (AUTO) 1.4 10^3/uL (1.5-3.5); LYMPHOCYTES % (AUTO) 18.4 %; MEAN CORPUSCULAR HEMOGLOBIN 30.7 pg (27.0-31.0); MEAN CORPUSCULAR HGB CONC 32.4 g/dL (32.0-36.0); MEAN CORPUSCULAR VOLUME 94.7 fL (81.0-99.0); MEAN PLATELET VOLUME 9.5 fL (7.9-10.8); MONOCYTES # (AUTO) 0.6 10^3/uL (0.0-1.0); MONOCYTES % (AUTO) 7.6 %; NEUTROPHILS # (AUTO) 5.6 10^3/uL (1.5-6.6); NEUTROPHILS % (AUTO) 72.7 %; PLT - PLATELET COUNT 363 10^3/uL (130-450); RED BLOOD COUNT 4.53 10^6/uL (4.20-5.40); RED CELL DISTRIBUTION WIDTH 13.2 % (12.0-15.0); WHITE BLOOD COUNT 7.8 x10^3/uL (4.8-10.8)
--- NOTE | 2019-06-20 13:23 | CT Report ---
Reason: AMS after recent falls with known T12 fracture Procedure Date: 06/20/2019 Accession Number: [id number] / [id number] Procedure: CT - HEAD WO CPT Code: FULL RESULT: EXAM: CT HEAD EXAM DATE: 06/20/2019 01:02 PM. CLINICAL HISTORY: AMS after recent falls with known T12 fracture. COMPARISON: BRAIN W/O 08/16/2016 11:00 AM. TECHNIQUE: Multiaxial CT images were obtained from the foramen magnum to the vertex. Reformats: Sagittal and coronal. IV contrast: None. In accordance with CT protocol optimization, one or more of the following dose reduction techniques were utilized for this exam: automated exposure control, adjustment of mA and/or KV based on patient size, or use of iterative reconstructive technique. FINDINGS: Parenchyma: No intraparenchymal hemorrhage. No evidence of mass, midline shift, or CT findings of acute infarction. Bashir-white differentiation is distinct. Diffuse chronic microangiopathic white matter changes are evident. Extraaxial Spaces: Normal for age. No subdural or epidural collections identified. Ventricles: The ventricles and cortical sulci are enlarged, consistent with age-related tissue loss. Sinuses and orbits: Imaged paranasal sinuses, orbits, and mastoids show no significant abnormality. Bones: No evidence of fracture or calvarial defect. Other: None. IMPRESSION: Mild to moderate senescent changes without acute intracranial abnormality seen. RADIA
--- NOTE | 2019-06-20 13:28 | XRAY Report ---
Reason: chest pain Procedure Date: 06/20/2019 Accession Number: [id number] / [id number] Procedure: XR - Chest 1 View X-Ray CPT Code: 53719 FULL RESULT: EXAM: CHEST RADIOGRAPHY EXAM DATE: 06/20/2019 01:13 PM. CLINICAL HISTORY: Chest pain. Recurring falls. Recent T12 fracture. COMPARISON: THORACIC SPINE 2 VIEW 06/12/2019 2:50 PM CHEST 2 VIEW 12/31/2017 4:14 PM. TECHNIQUE: 1 view. FINDINGS: Lungs/Pleura: No focal opacities evident. No pleural effusion. No pneumothorax. Lungs are hyperinflated, similar to prior. Mediastinum: Within exam limitations, the cardiomediastinal contour is normal. There is minimal atherosclerotic calcification of the aortic arch. Other: Bones are diffusely demineralized. Compression fracture of the T12 vertebral body was better seen on recent prior thoracic spine radiographs. There are old healed right anterior rib fracture deformities. There is mild scoliosis of the thoracolumbar spine. IMPRESSION: 1. Lungs are hyperinflated, similar to prior chest x-rays. This raises possibility of COPD/emphysema. 2. No acute cardiopulmonary abnormality. 3. T12 compression fracture was better seen on recent prior thoracic spine radiographs. RADIA
[2019-06-20 13:44] LABS: PT - PROTHROMBIN TIME 11.3 secs (9.9-12.6)
[2019-06-20 13:47] LABS: BILIRUBIN,URINE NEGATIVE (NEGATIVE); GLUCOSE, URINE (UA) NEGATIVE (NEGATIVE); KETONES,URINE (UA) 40 mg/dL (NEGATIVE); LEUKOCYTE ESTERASE, URINE NEGATIVE (NEGATIVE); NITRITE,URINE POSITIVE (NEGATIVE); OCCULT BLOOD,URINE NEGATIVE (NEGATIVE); PROTEIN,URINE NEGATIVE (NEGATIVE); UROBILINOGEN,URINE 0.2 (NORMAL) E.U./dL (NORMAL)
[2019-06-20 13:49] LABS: CLARITY,URINE HAZY (CLEAR)
[2019-06-20 13:51] LABS: PARTIAL THROMBOPLASTIN TIME 25.5 secs (24.9-33.3)
[2019-06-20 13:55] LABS: ALBUMIN 4.1 g/dL (3.2-5.5); ALBUMIN/GLOBULIN RATIO 1.4 (1.0-2.2); BILIRUBIN,TOTAL 0.8 mg/dL (0.2-1.0); CALCIUM 9.2 mg/dL (8.5-10.3); CREATININE 0.9 mg/dL (0.4-1.0)
[2019-06-20 13:58] LABS: BACTERIA,URINE Moderate /HPF (None Seen); RBC,URINE 0-5 /HPF (0-5); SQUAMOUS EPITHELIAL CELL,UR NONE SEEN (<= Few)
[2019-06-20 14:02] VITALS: BP 147/83
== END 2019-06-20 14:40 | disposition home or self-care (01) ==
LOC: ED 12:00
DX: N39.0 Urinary tract infection, site not specified (principal); R41.0 Disorientation, unspecified; S22.080A Wedge compression fracture of T11-T12 vertebra, initial encounter for closed fracture; W19.XXXA Unspecified fall, initial encounter; E11.9 Type 2 diabetes mellitus without complications; Z79.84 Long term (current) use of oral hypoglycemic drugs; Z79.82 Long term (current) use of aspirin
CPT/HCPCS: 36415; 51701; 70450; 71045; 80053; 81001; 81003; 83605; 83690; 84443; 84484; 85025; 85610; 85730; 87040; 87086; 93005; 99284

== ENCOUNTER 2019-07-31 12:54 | Outpatient (CLI) | payer MEDICARE ==
--- NOTE | 2019-08-04 09:24 | XRAY Report ---
Reason: CLOSED WEDGE COMPRESSION FRACTURE OF T 12 Procedure Date: 07/31/2019 Accession Number: [id number] / [id number] Procedure: XR - ThoracoLumbar 2 View CPT Code: 89401 FULL RESULT: EXAM: LUMBOSACRAL SPINE RADIOGRAPHY EXAM DATE: 07/31/2019 01:33 PM. CLINICAL HISTORY: Closed wedge compression fracture of T12. COMPARISONS: LUMBAR SPINE 2 VIEW 06/12/2019 2:41 PM THORACIC SPINE 2 VIEW 06/12/2019 2:50 PM. TECHNIQUE: 3 views. FINDINGS: Alignment: Moderate leftward thoracolumbar scoliosis. Bones: Progression of compressive change at the T12 vertebral body, now greater than 75%. Posterior vertebral body based osteophyte projects approximately 2 mm into the anterior spinal canal. Stable anterior compressive fracture of approximately 50% at L1. Moderate to severe disk space narrowing of the imaged portion of the upper to mid lumbar spine. Multilevel bony bridging and osteophytic spurring of the vertebral bodies as before. Soft Tissues: The visualized bowel gas pattern is normal. IMPRESSION: Progression of compressive fracture at T12, now grade 4. RADIA
--- NOTE | 2019-08-05 14:16 | DEXA Report ---
Reason: closed wedge compression fracture of 12th vertabre Procedure Date: 07/31/2019 Accession Number: [id number] / [id number] Procedure: DEX - Dexa Spine and/or Hip CPT Code: FULL RESULT: EXAM: Dexa Spine and/or Hip DATE: 07/31/2019 1:20 PM CLINICAL HISTORY: closed wedge compression fracture of 12th vertebre TECHNIQUE: Dual energy x-ray absorptiometry (DXA) was performed on a [employer] System. Regions measured are the AP Spine, femoral neck, and if needed forearm. COMPARISON: 02/27/2018. In accordance with the International Society for Clinical Densitometry (ISCD) guidelines, data from previous exams may be reanalyzed using current recommendations and techniques. This is done to allow a more accurate basis for comparison with the current study. FINDINGS: The data for the lumbar spine is as follows: BMD (g/cm/cm) T-SCORE Z-SCORE REGION L1 0.861 -2.2 0.0 L2 1.013 -1.6 0.6 L3 1.019 -1.5 0.7 L4 1.044 -1.3 0.9 TOTAL 0.993 -1.6 0.6 NOTE: All evaluable vertebrae are used for classification The data for the hip is as follows: BMD (g/cm/cm) T-SCORE Z-SCORE REGION Neck 0.764 -2.0 0.3 TOTAL 0.786 -1.8 0.3 NOTE: The femoral neck or total proximal femur, whichever is lowest, is used for classification. DXA RESULTS SUMMARY: Spine SCAN DATE AGE BMD CHANGE VS CHANGE VS PREVIOUS PREVIOUS % 07/31/2019 [age] 0[age]993 0.110* 12.5* 02/27/2018 74.6 0[age]883 * Denotes significant change at the 95% confidence level. Denotes dissimilar scan types or analysis methods. DXA RESULTS SUMMARY: Hip SCAN DATE AGE BMD CHANGE VS CHANGE VS PREVIOUS PREVIOUS % 07[age]31/2019 74.0 0[age]786 0.014 1.8 02/27/2018 72.6 0.772 * Denotes significant change at the 95% confidence level. Denotes dissimilar scan types or analysis methods. IMPRESSION: THE WHO CLASSIFICATION BASED ON THE INTERNATIONAL REFERENCE STANDARD IS OSTEOPENIA. THE FRACTURE RISK IS INCREASED. RECOMMENDATION: Patients with diagnosis of osteoporosis or osteopenia should have regular bone mineral density assessment. For those eligible for Medicare, routine testing is allowed once every 2 years. Testing frequency can be increased for patients who have rapidly progressing disease or for those who are receiving medical therapy to restore bone mass. COMMENT: World Health Organization (WHO) definitions for osteoporosis and osteopenia: NORMAL BMD: T-score at -1.0 or higher, fracture risk is low OSTEOPENIA BMD: T-score between -1.0 and -2.5, fracture risk is increased. OSTEOPOROSIS BMD: T-score at -2.5 or lower, fracture risk is high. National Osteoporosis Foundation recommends: 1. Obtain adequate dietary calcium (at least 1200 mg per day) and vitamin D (400-800 international units per day). 2. Participate, as appropriate, in regular weightbearing and muscle-strengthening exercise. 3. Avoid tobacco use and reduce alcohol and caffeine intake. 4. For more detailed information see the website at www.NOF.org.
== END 2019-07-31 12:55 | disposition home or self-care (01) ==
LOC: DI 12:54
PROVIDERS: ATTEND Orthopaedic Surgery Orthopaedic Surgery of the Spine
DX: S22.080A Wedge compression fracture of T11-T12 vertebra, initial encounter for closed fracture (principal)
CPT/HCPCS: 72080; 77080